=== PATIENT | female | born 1990 | race Caucasian/White ===

== ENCOUNTER 2016-09-24 18:44 | Emergency (ER) | payer OTHER ==
[~2016-09-24] VITALS: Ht 170.2 cm; Wt 143.2 kg
[~2016-09-24 18:44] MED LIST: ACYC400T2 PO; DESO1TAB4 PO; FERR325T6 PO; FLUO20CA25 PO; FLUT16SP NS; HYDR-4003 PO; LORA10CA PO; METH750T3 PO; NAPR500T PO
[2016-09-24 19:07] VITALS: BP 143/87; PULSE 73; RESP 16; O2SAT 100
[2016-09-24] MEDS ORDERED: KETO5DRO60 BOTH_EYES (19:14)
[2016-09-24 20:19] LABS: APPEARANCE,URINE HAZY (CLEAR,HAZY); COLOR,URINE YELLOW (YELLOW); OCCULT BLOOD,URINE NEGATIVE (NEGATIVE); UROBILINOGEN,URINE NORMAL (NORMAL)
[2016-09-24 20:42] LABS: BASOPHILS % (AUTO) 0.3 % (0-3); EOSINOPHILS % (AUTO) 4.4 % (0-5); MONOCYTES % (AUTO) 9.1 % (4-12); Mean Corpuscular Hemoglobin 25.8 pg (27.0-35.0); NEUTROPHILS % (AUTO) 52.5 % (40-74); Platelet Count 283 bil/L (150-400)
[2016-09-24 21:10] LABS: Magnesium 2.1 mg/dL (1.6-2.6)
--- NOTE | 2016-09-24 21:27 | ED.REPORT ---
HPI-General Illness Date of Service Sep 24, 2016 ED Provider: Noble Crowder DO Pt is an otherwise healthy 26 year old female who presents to the ED complaining of vomiting onset 1 week ago. She c/o associated cough with green phlegm, headache, and increased urination. She denies dysuria and . Nursing Notes Stated Complaint: ABD PAIN Chief Complaint: Female Abdominal Pain Nursing Notes Reviewed: Yes Allergies: Coded Allergies: Penicillins (Verified Allergy, Unknown, 09/24/16) amoxicillin (Verified Allergy, Unknown, 09/24/16) oxycodone (Verified Adverse Reaction, Unknown, 09/24/16) Scheduled Desogestrel/Ethinyl Estradiol (Apri) 1 Each Tablet 1 TABLET PO DAILY Fluoxetine (Fluoxetine) 20 Mg Capsule 20 MG PO DAILY Fluticasone Propionate (Fluticasone Propionate Nasal) 16 Gm [place].susp 1-2 SPRAY NS BID Loratadine (Claritin) 10 Mg Capsule 10 MG PO DAILY Scheduled PRN Acyclovir (Acyclovir) 400 Mg Tablet 400 MG PO BID PRN PRN h Hydrocodone-Acetaminophen 5-325 mg (Hydrocodone-Acetaminophen 5-325 mg) 1 Each Tablet 1 TABLET PO q6h PRN PRN For Pain Ketotifen Fumarate (Ketotifen Fumarate) 5 Ml Drops 1 DROP BOTH_EYES DAILY PRN PRN allergies Naproxen (Naprosyn) 500 Mg Tablet 500 MG PO BID PRN PRN For Pain General Time Seen by MD: 21:26 Chief Complaint Vomiting Hx Obtained From: Patient Arrived By: Walk-in Sudden in Onset?: No Onset Occurred: 1 week ago Symptom Duration: Intermittent Severity: Current: No pain currently Severity: Maximum: No pain Recent Healthcare: No recent doctor visit, No recent hospitalization Similar Sx Previous: No Past Medical History Past Medical History Reports: Depression Past Surgical History Left ankle Right knee pain Tubal ligation Reports: Appendectomy Smoking History Never Smoker Social History Alcohol Use: Denies alcohol use Drug Use: Denies drug use Other Social History: Good social support Ambulatory Status Independent Review of Systems Full Review of Systems Respiratory: Reports: Prod cough, green Cardiovascular: Reports: Chest pain GI: Reports: Nausea, Vomiting Female: Reports: Urination increased, Denies: Dysuria Neurologic: Reports: Headache Complete sys rev & neg: except as marked. Physical Exam Vital Signs Vital Signs Date Time Temp Pulse Resp B/P Pulse Ox O2 Delivery O2 Flow Rate FiO2 09/24/16 22:14 36.7 86 16 159/107 100 Room Air 09/24/16 19:07 36.9 73 16 143/87 100 Room Air Initial VS: Reviewed Head / Eyes: Atraumatic, Normocephalic Neck: Supple, Full range of motion Cardiovascular: Regular rate & rhythm, Heart sounds normal, Intact distal pulses Abdomen / GI: Soft, Non-tender Extremities: Vascular intact, Neuro intact Skin: Warm, Dry, No cyanosis Neurologic: Alert, Oriented, Nonfocal Psychiatric: Mood/affect normal, Behavior normal General/Constitutional: Awake, Alert, Cooperative Respiratory / Chest: Atraumatic Rales in right upper lobe with egophony Interpretation & Diagnostics Lab Results Interpretation Result Diagram: 09/24/16202409/24/162024 Test 09/24/16 19:30 09/24/16 20:25 Urine Color Yellow (YELLOW) Urine Appearance Hazy (CLEAR,HAZY) Urine pH 6.0 (5.0-8.0) Urine Specific Stringer 1.030 (1.003-1.035) Urine Protein Negativemg/dL (NEG,TRACE) Urine Glucose (UA) Negativemg/dL (NEGATIVE) Urine Ketones Tracemg/dL (NEGATIVE) Urine Occult Blood Negative (NEGATIVE) Urine Nitrite Negative (NEGATIVE) Urine Bilirubin Negative (NEGATIVE) Urine Urobilinogen Normalmg/dL (NORMAL) Urine Leukocyte Esterase Moderate (NEGATIVE) Urine RBC 0-2/hpf (0-2) Urine WBC 11-50/hpf (0-5) Urine Epithelial Cells Moderate/hpf (NONE-MOD) Urine Crystals None seen (NONE SEEN) Urine Bacteria Few/hpf (NONE-FEW) Urine Hyaline Casts None/lpf (NONE) Urine Granular Casts None seen (NONE SEEN) Urine Waxy Casts None seen (NONE SEEN) Urine Red Blood Cell Casts None seen (NONE SEEN) Urine White Blood Cell Casts None seen (NONE SEEN) Urine Mucus Present (None Seen) Urine Trichomonas None seen (NONE SEEN) Urine Yeast None (NONE SEEN) Urinalysis Comment None Urine Culture Reflexed Indicated White Blood Count 6.8th/mm3 (3.8-10.1) Red Blood Count 4.80mil/mm3 (3.90-5.20) Hemoglobin 12.4g/dL (12.0-15.6) Hematocrit 37.9% (35.0-46.0) Mean Corpuscular Volume 79.0fL (81-100) Mean Corpuscular Hemoglobin 25.8pg (27.0-35.0) Mean Corpuscular Hemoglobin Concent 32.7% (32.0-37.0) Red Cell Distribution Width 14.1% (12.3-15.4) Platelet Count 283bil/L (150-400) Neutrophils (%) (Auto) 52.5% (40-74) Lymphocytes (%) (Auto) 33.6% (14-46) Monocytes (%) (Auto) 9.1% (4-12) Eosinophils (%) (Auto) 4.4% (0-5) Basophils (%) (Auto) 0.3% (0-3) Sodium Level 141mEq/L (134-144) Potassium Level 3.6mEq/L (3.5-5.2) Chloride Level 103mEq/L (97-108) Carbon Dioxide Level 26mmol/L (18-29) Blood Urea Nitrogen 5mg/dL (6-20) Creatinine 0.58mg/dL (0.57-1.00) Estimat Glomerular Filtration Rate 177mL/min (>59) Glucose Level 74mg/dL (60-99) Calcium Level 9.0mg/dL (8.5-10.1) Magnesium Level 2.1mg/dL (1.6-2.6) Total Bilirubin 0.3mg/dL (0.0-1.2) Aspartate Amino Transf (AST/SGOT) 31U/L (0-50) Alanine Aminotransferase (ALT/SGPT) 49U/L (0-32) Alkaline Phosphatase 80U/L (25-150) Total Protein 6.6g/dL (6.4-8.4) Albumin 3.9g/dL (3.4-5.0) Lipase 27U/L (13-60) Hold Rod Top Tube Received (Received) Re-Eval/Medical Decision Source of Hx: Old records Time of Eval: 21:33 Re-Evaluation/Progress Note: Pt rechecked. Informed pt of plan for discharge. Pt understands and agrees with plan for discharge. F/U instructions and RTER warnings given. All questions addressed. Counseled Regarding: Diagnosis, Lab results, Need for follow-up, When/why to return to ED Discharge & Departure Primary Impression: UTI (urinary tract infection) Urinary tract infection type: site unspecified Hematuria presence: without hematuria Qualified Code: N39.0 - Urinary tract infection, site not specified Additional Impression: Acute bronchitis Bronchitis organism: unspecified organism Qualified Code: J20.9 - Acute bronchitis, unspecified Disposition: Home Discharge Condition All VS Reviewed: Yes Condition: Stable Patient Instructions: Acute Bronchitis (ED), Urinary Tract Infection in Women ( ED) Additional Instructions: Bactrim 2x daily for 4 days. Zithromax 1x daily for 4 days. Drink plenty of liquids. Stay off work until September 27. Return to the Emergency Department for any new or worsening symptoms. Referrals: Leslie Mariscal MD (PCP) David Attestation Portions of this note were transcribed by Jina Alston. I, Dr. Crowder personally performed the history, physical exam and medical decision-making; I reviewed and confirmed the accuracy of the information in the transcribed note. Signed by : David Owens, 09/24/16 and 23:30. copies to: Leslie Mariscal MD, Todd P DO Sep 24, 2016 21:27 Jina Andrew Sep 24, 2016 21:32
[2016-09-24] MEDS ORDERED: Trimethoprim-Sulfa 160 mg-800 mg Tablet PO ONE (21:35)
[2016-09-24 22:14] VITALS: BP 159/107; PULSE 86; RESP 16; O2SAT 100
== END 2016-09-24 22:15 | disposition home or self-care (01) ==
LOC: SED 18:44
DX: N39.0 Urinary tract infection, site not specified (principal); J20.9 Acute bronchitis, unspecified; F32.9 Major depressive disorder, single episode, unspecified; Z88.0 Allergy status to penicillin; Z88.1 Allergy status to other antibiotic agents; Z88.5 Allergy status to narcotic agent